=== PATIENT | female | born 1950 | race Caucasian/White ===

== ENCOUNTER → 2018-05-07 | Outpatient (CLI) | payer OTHER ==
[2014-04-07 09:01] VITALS: BP 93/60
[~2018-05-07] MED LIST: CHOL10002 PO; CLOB50SO2 TP; DOXY100C2 PO; HYDR-210 PO; MULT-18 PO; VITA100C4 PO
--- NOTE | 2018-05-07 13:43 | KCIC ---
Bilateral digital screening mammograms with 3-D tomosynthesis: Reason for examination: Routine screening. Comparison is made to previous studies dated 03/09/2015 and 06/30/2014. Bilateral mammograms in CC and oblique projections were obtained with 2-D imaging and 3-D tomosynthesis imaging on a Siemens Inspiration unit and reviewed on the workstation. Interpretation was made with the benefit of CAD. The skin and nipples show no abnormalities. No abnormal axillary lymph nodes are seen. The breast parenchyma shows scattered fatty and fibroglandular density. (Breast density: Category B.) There continue to be multiple small nodular densities bilaterally consistent with history of cysts seen on previous ultrasound examinations. There are also small nodules consistent with intramammary lymph nodes in the upper outer quadrants bilaterally which are stable. There are no new dominant masses, suspicious calcifications or architectural distortion. Benign calcifications are present. Impression: No evidence of malignancy. Recommend routine screening. BI-RAD Category 2: Benign. "Our facility is accredited by the [employer] Mammography Program." This patient's information has been entered into a reminder system for the patient to be notified with the results of her examination and a target date for the next mammogram. Electronically signed by: Daria Ulloa MD (05/07/2018 1:39 PM) [id number]
== END | disposition home or self-care (01) ==
LOC: KCIC MAMMO 10:20
PROVIDERS: ATTEND Family Medicine
DX: Z12.31 Encounter for screening mammogram for malignant neoplasm of breast (principal)
CPT/HCPCS: 77063; 77067

== ENCOUNTER → 2018-07-23 | Outpatient (CLI) | payer OTHER ==
[2014-04-07 09:01] VITALS: BP 93/60
--- NOTE | 2018-07-23 15:27 | KCIC ---
History: Postmenopausal screening, steroid usage, history of adult fracture, white female. Comparison: None. Findings: Bone Densitometry was performed with dual photon absorption of the lumbar spine and left hip. Lumbar Spine: Bone density is 0.869 g/cm2 for L1-L4. T-Score is -1.6. Z-score is 0.4. Left hip: Bone density is 0.805 g/cm2. T-Score is -1.1. Z-score is 0.3. IMPRESSION: Osteopenia of the lumbar spine and left hip. World Health definition of osteoporosis and osteopenia: Normal = T-Score at or above -1.0; osteopenia = T-score between -1.0 and -2.5; osteoporosis = T-score at or below -2.5 Electronically signed by: Prashanth Bowles MD (07/23/2018 3:24 PM) [facility]
== END | disposition home or self-care (01) ==
LOC: KCIC DEXA 11:22
PROVIDERS: ATTEND Family Medicine
DX: Z13.820 Encounter for screening for osteoporosis (principal); M85.89 Other specified disorders of bone density and structure, multiple sites
CPT/HCPCS: 77080

== ENCOUNTER → 2021-07-04 | Outpatient (CLI) | payer MEDICARE ==
[2014-04-07 09:01] VITALS: BP 93/60
[~2021-07-04] MED LIST changes: -DOXY100C2 PO; +DOXY100C3 PO; +IOHEXOL 240 MG/ML 50ML VIAL. PO ONE; +IOHEXOL 300 MG/ML 100ML VIAL. IV ONE
--- NOTE | 2021-07-04 11:53 | RAD ---
EXAM: CT ABDOMEN/PELVIS WITH CONTRAST. HISTORY: Left lower quadrant pain. TECHNIQUE: Computed tomography of the abdomen and pelvis was performed after the intravenous administ ration of iodinated contrast. One or more of the following individualized dose reduction techniques w ere utilized for this examination: 1. Automated exposure control. 2. Adjustment of the mA and/or kV according to patient size. 3. Use of iterative reconstruction technique. COMPARISON: None. FINDINGS: Lung windows through the visualized portions of the bases reveal interstitial lung disease in the bases. There is a small hiatal hernia. Bone windows reveal no suspicious lesions. Wall thickening and mild stranding about the sigmoid colon are consistent with mild diverticulitis. A small mural abscess is suspected medially, measuring 1.4 cm. There is no drainable collection or obs truction. Surrounding diverticulosis is moderate to severe. There is wall thickening of the bladder. The appendix is not inflamed. The uterus is surgically absent. There is no small bowel obstruction. T here is a small hiatal hernia. The gallbladder is surgically absent. The liver, pancreas, adrenal glands, kidneys and spleen are unr emarkable. There are no pathologically enlarged lymph nodes. IMPRESSION: 1. Findings consistent with mild sigmoid diverticulitis. No drainable collection. 2. Wall thickening of the bladder may reflect secondary edema from the adjacent process, cystitis or chronic outlet obstruction. Correlate with urinalysis. 3. Small hiatal hernia. 4. Mild interstitial lung disease or scarring in the bases. Electronically signed by: Harriet Camacho MD (07/04/2021 11:50 AM) [id number]
== END ==
LOC: CT 09:38
PROVIDERS: ATTEND Family Medicine
DX: K44.9 Diaphragmatic hernia without obstruction or gangrene (principal); K57.90 Diverticulosis of intestine, part unspecified, without perforation or abscess without bleeding
CPT/HCPCS: 74177; Q9966; Q9967